=== PATIENT | female | born 1980 | race Caucasian/White ===

== ENCOUNTER 2017-05-03 12:26 | Emergency (ER) | payer MEDICAID ==
[~2017-05-03] VITALS: Ht 170.2 cm; Wt 53.0 kg
[2017-05-03 12:27] VITALS: BP 128/86; PULSE 67; RESP 24; TEMP 98.5; O2SAT 98
[2017-05-03] MEDS ORDERED: ZOFR4TAB PO (13:44)
[2017-05-03] MEDS ORDERED: PROM25TA10 PO (13:44)
[2017-05-03 13:45] VITALS: BP 143/83; PULSE 66; RESP 18; O2SAT 100
[2017-05-03] MEDS ORDERED: METOCLOPRAMIDE INJ 10 MG in SODIUM CHLORIDE 0.9% INJ 50 ML IV ONE (14:00)
[2017-05-03] MEDS ORDERED: SODIUM CHLOR 0.9% 1000 ML INJ 1,000 ML IV ONE (14:00)
[2017-05-03 14:34] LABS: BACTERIA, URINE MANY /hpf; BLOOD, URINE NEG (NEG); COMMENT (UR) CULTURE INDICATED; CULTURE IF INDICATED CULTURE INDICATED; GLUCOSE,URINE NEG (NEG); KETONE, URINE 40 mg/dL (NEG); MUCUS URINE FEW /lpf (OCC); NITRITE,URINE NEG (NEG); SQUAMOUS EPITHELIAL CELL URINE <1 /hpf (0-5); URINE COLOR LIGHT-YELLOW (YELLW/STRAW)
[2017-05-03 14:49] LABS: ALT (GPT) 26 U/L (10-53); ANION GAP 10 MEQ/L (5-15); AST (GOT) 20 U/L (15-37); BICARBONATE 20.6 MEQ/L (21.0-32.0); BLOOD UREA NITROGEN 8 MG/DL (7-18); CHLORIDE 104 MEQ/L (98-107); GLOMERULAR FILTRATION RATE 152 ML/MIN (>89); POTASSIUM 3.1 MEQ/L (3.5-5.1); SODIUM (NA) 135 MEQ/L (136-145)
[2017-05-03 14:51] LABS: ALKALINE PHOSPHATASE 45 U/L (45-117); TOTAL BILIRUBIN ADULT 0.5 MG/DL (0.2-1.0)
[2017-05-03] MEDS ORDERED: AMOX875T PO (15:31)
--- NOTE | 2017-05-03 15:31 | PD ---
HPI Chief Complaint: Medical Clearance Time Seen by Provider: 13:43 Travel History International Travel<30 days: No Contact w/Intl Traveler<30days: No Traveled to known affect area: No History of Present Illness HPI Patient is a 37 year old female, approximately 9 weeks who comes in because she needs confirmation of a "vital " in order to go to detox. She has been using heroine, last use 3 days ago and is now having withdrawal symptoms. She says she has chills, nausea and vomiting. She does report some lower abdominal cramping. She denies vaginal bleeding or discharge. She has had one prior that ended in . She denies any chest pain or SOB. PFSH Past Medical History Medical History: Denies Significant Hx ?: : 1 Past Surgical History Other Surgery: Yes (breast) Social History Alcohol Use: Yes Tobacco Use: No Substance Use: Yes (couple of days clean) Allergies-Medications (Allergen,Severity, Reaction): Coded Allergies: No Known Allergies (Unverified , 05/03/17) Reported Meds & Prescriptions Reported Meds & Active Scripts Active Reported Phenergan (Promethazine HCl) 25 Mg Tablet 25 Mg PO Q6H PRN Zofran (Ondansetron HCl) 4 Mg Tab 4 Mg PO Q6HR PRN Review of Systems Except as stated in HPI: all other systems reviewed are Neg General / Constitutional: Positive: Chills, No: Fever HENT: No: Headaches, Lightheadedness Cardiovascular: No: Chest Pain or Discomfort Respiratory: No: Shortness of Breath Gastrointestinal: Positive: Nausea, Vomiting, Abdominal Pain Genitourinary: Positive: Dysuria Musculoskeletal: No: Myalgias Skin: No Rash, No Change in Pigmentation Neurologic: No: Weakness, Dizziness Physical Exam Narrative GENERAL: Awake and alert, in no acute distress. SKIN: Focused skin assessment warm/dry. No wounds. HEAD: Atraumatic. Normocephalic. EYES: Pupils equal and round. No scleral icterus. ENT: Mucous membranes pink and moist. NECK: Trachea midline. No JVD. CARDIOVASCULAR: Regular rate and rhythm. No murmur appreciated. RESPIRATORY: No accessory muscle use. Clear to auscultation. Breath sounds equal bilaterally. GASTROINTESTINAL: Abdomen soft, nondistended. Tender to palpation of the suprapubic area. No rebound or guarding. MUSCULOSKELETAL: No obvious deformities. No clubbing. No cyanosis. No edema. NEUROLOGICAL: Awake and alert. No obvious cranial nerve deficits. Motor grossly within normal limits. Normal speech. PSYCHIATRIC: Appropriate mood and affect; insight and judgment normal. Data Data Last Documented VS Vital Signs Date Time Temp Pulse Resp B/P (MAP) Pulse Ox O2 Delivery O2 Flow Rate FiO2 05/03/17 13:45 66 18 143/83 (103) 100 Room Air 05/03/17 12:27 98.5 Orders Orders Iv Access Insert/Monitor (05/03/17 14:00) Complete Blood Count With Diff (05/03/17 14:00) Comprehensive Metabolic Panel (05/03/17 14:00) Urinalysis - C+S If Indicated (05/03/17 14:00) Ed Poc Ultrasound (05/03/17 ) Sodium Chlor 0.9% 1000 Ml Inj (Ns 1000 M (05/03/17 14:00) Metoclopramide Inj (Reglan Inj) (05/03/17 14:00) Urine Culture (05/03/17 14:12) Labs Laboratory Tests Test 05/03/17 14:12 05/03/17 14:15 Urine Color LIGHT-YELLOW Urine Turbidity HAZY Urine pH 7.0 Urine Specific [place] 1.008 Urine Protein NEG mg/dL Urine Glucose (UA) NEG mg/dL Urine Ketones 40 mg/dL Urine Occult Blood NEG Urine Nitrite NEG Urine Bilirubin NEG Urine Urobilinogen LESS THAN 2.0 MG/DL Urine Leukocyte Esterase MOD Urine RBC 2 /hpf Urine WBC 3 /hpf Urine Squamous Epithelial Cells <1 /hpf Urine Amorphous Sediment RARE Urine Bacteria MANY /hpf Urine Mucus FEW /lpf Microscopic Urinalysis Comment CULTURE INDICATED Blood Urea Nitrogen 8 MG/DL Creatinine 0.46 MG/DL Random Glucose 90 MG/DL Total Protein 7.0 GM/DL Albumin 3.6 GM/DL Calcium Level 8.8 MG/DL Alkaline Phosphatase 45 U/L Aspartate Amino Transf (AST/SGOT) 20 U/L Alanine Aminotransferase (ALT/SGPT) 26 U/L Total Bilirubin 0.5 MG/DL Sodium Level 135 MEQ/L Potassium Level 3.1 MEQ/L Chloride Level 104 MEQ/L Carbon Dioxide Level 20.6 MEQ/L Anion Gap 10 MEQ/L Estimat Glomerular Filtration Rate 152 ML/MIN [facility] Medical Decision Making Medical Screen Exam Complete: Yes Emergency Medical Condition: Yes Differential Diagnosis UTI versus versus dehydration versus opiate withdrawal Narrative Course Patient is a 37-year-old female who comes in needing confirmation of . She is having symptoms of heroin withdrawal. IV established, labs sent. Urinalysis is positive for UTI. Patient given IV fluids and Reglan. She'll be discharged with a prescription for amoxicillin. Bedside ultrasound confirms . Heart rate is 188. and is anxious to go to [facility]. She is given her paperwork and advised to go to [facility] for detox. Advised to take all of her antibiotic. Advised to return to the ED as needed for any worsening symptoms. Procedures Procedure Narrative Emergency Department Pelvic ultrasound was performed with patient consent. The curvilinear probe was used in the transverse and sagittal views within the suprapubic region revealing single intrauterine . heart rate was 188. Diagnosis Primary Impression: Urinary tract infection Qualified Codes: N30.00 - Acute cystitis without hematuria Patient Instructions: General Instructions, (ED), Urinary Tract Infection in (ED) Additional Instructions: Take all of your antibiotic for the UTI. You have a single intrauterine with a heart rate of 188. Follow-up with OB. Return to the ED as needed for any worsening symptoms. Scripts Amoxicillin (Amoxicillin) 875 Mg Tab 875 MG PO BID for Infection for 7 Days, #14 TAB 0 Refills Prov: Caroline Evans MD 05/03/17 Disposition: 01 DISCHARGE HOME Condition: Stable Caroline Evans MD May 03, 2017 15:31
[2017-05-03 16:07] VITALS: BP 133/89; PULSE 69; RESP 18; O2SAT 98
== END 2017-05-03 16:15 | disposition home or self-care (01) ==
LOC: NEPC 12:26
DX: O23.41 Unspecified infection of urinary tract in pregnancy, first trimester (principal); F11.23 Opioid dependence with withdrawal; O21.9 Vomiting of pregnancy, unspecified
CPT/HCPCS: 80053; 81001; 87086; 96365; 99284; J2765; J7030

== ENCOUNTER → 2017-07-19 | Outpatient (CLI) | payer OTHER ==
[~2017-07-19] MED LIST: FERRTAB2 PO; PREN1CAP7 PO
== END ==
LOC: HPND 09:08
PROVIDERS: ATTEND Obstetrics & Gynecology
DX: O09.522 Supervision of elderly multigravida, second trimester (principal); O09.32 Supervision of pregnancy with insufficient antenatal care, second trimester
CPT/HCPCS: 76811; 76817

== ENCOUNTER → 2017-08-16 | Outpatient (CLI) | payer OTHER | LOC: HPND 09:12 | PROVIDERS: ATTEND Obstetrics & Gynecology | DX: O09.522 Supervision of elderly multigravida, second trimester (principal); O99.322 Drug use complicating pregnancy, second trimester; O44.42 Low lying placenta NOS or without hemorrhage, second trimester | CPT/HCPCS: 76816; 76825; 76827; 93325 ==